=== PATIENT | male | born 1945 | race Caucasian/White ===

== ENCOUNTER 2016-10-06 11:53 | Emergency (ER) | payer MEDICARE ==
[2016-10-06 12:11] VITALS: BP 132/69
--- NOTE | 2016-10-06 13:31 | ED Physician Documentation ---
PD HPI NVD - Stated complaint Stated Complaint: RECTAL BLEEDING - Chief complaint Chief Complaint: Abd Pain - History obtained from History obtained from: Patient, Family - History of Present Illness Timing - onset: How many months ago (3) Timing - duration: Months (3) Timing - details: Gradual onset, Still present, Waxing and waning Associated symptoms: Other (rectal pain and diarrhea/constipation.) Contributing factors: Travel Improved by: Meds Worsened by: Other (stress of dealing with the insurance company) Similar symptoms before: Diagnosis (ulcerative colitis) Recently seen: Other (The patient was seen at [facility] by Dr. 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 He has not been able to get control of his symptoms entirely and he is having some trouble getting in to see the oil field roustabout here in [facility] out of his usual network. He has had some trouble getting his medication as well but he does have that now. He has been using Canasa and he has had some improvement but continues to have frequent loose bowel movements with blood. He has not lost any significant quantity of blood. He does have some rectal pain. Review of Systems Constitutional: reports: Fatigue. denies: Fever, Chills Eyes: denies: Decreased vision Ears: denies: Ear pain Nose: denies: Congestion Throat: denies: Sore throat Cardiac: denies: Chest pain / pressure Respiratory: denies: Dyspnea, Cough GI: reports: Diarrhea, Bloody / black stool. denies: Abdominal Pain, Nausea, Vomiting : denies: Dysuria, Frequency Skin: denies: Rash, Lesions Musculoskeletal: reports: Back pain. denies: Neck pain Neurologic: denies: Generalized weakness, Focal weakness, Numbness PD PAST MEDICAL HISTORY - Past Medical History GI: Ulcerative colitis : Renal insuffiency Psych: Anxiety Musculoskeletal: Other Other Past Medical History: skin cancer, arthritis, difficulty sleeping, stage 2 kidney disease - Past Surgical History Past Surgical History: Yes General: Colonoscopy Ortho: Other - Present Medications Home Medications: Ambulatory Orders Medication Instructions Recorded Confirmed Hydrocortisone Acetate [Proctocort] 30 mg RC BID #60 supp.rect 10/06/16 Mesalamine W/Cleansing Wipes 4 gm RC BID #60 enema.kit 10/06/16 [Rowasa 4 gm/60 ml Enema Kit] - Allergies Allergies/Adverse Reactions: Allergies Allergy/AdvReac Type Severity Reaction Status Date / Time No Known Drug Allergies Allergy Verified 10/06/16 12:12 - Social History Does the pt smoke?: No Smoking Status: Never smoker Does the pt drink ETOH?: Yes Does the pt have substance abuse?: No - Immunizations Immunizations are current?: Yes PD ED PE NORMAL - Vitals Vital signs reviewed: Yes - General General: Alert and oriented X 3, No acute distress, Well developed/nourished - HEENT HEENT: Atraumatic, PERRL, EOMI - Neck Neck: Supple, no meningeal sign - Cardiac Cardiac: RRR, No murmur - Respiratory Respiratory: No respiratory distress, Clear bilaterally - Abdomen Abdomen: Soft, Other (mild suprapubic tenderness without garding or rebound. ) - Rectal Rectal: Other (The rectal tone is normal and there is a lot of pain to the rectum with palpable internal hemorrhoid ) - Back Back: No CVA TTP, No spinal TTP - Derm Derm: Normal color, Warm and dry, No rash - Extremities Extremities: No deformity, No edema Results - Vitals Vitals: Vital Signs - 24 hr 10/06/16 12:04 Temperature 36.3 C L Heart Rate 74 Respiratory 18 Rate Blood Pressure 132/69 H O2 Saturation 98 Oxygen O2 Source Room air PD MEDICAL DECISION MAKING - ED course Complexity details: considered differential, d/w patient, d/w family ED course: 70 y/o male with a slow response to canasa and concern with ascending disease. He has not been able to get in to see the oil field roustabout. He has the canasa and we will add in an enema in the form of rowesa and rectal cortisone in an attempt to induce remission and he will follow up with his oil field roustabout to determine the need for maintenance. 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 This should induce a remission within 4-6 weeks and following this you should go on maintenance therapy with once daily treatment or an oral regime of Asacol or similar medication and this should be prescribed by your oil field roustabout. Discharge Date/Time: 10/06/16 14:01
== END 2016-10-06 14:01 | disposition home or self-care (01) ==
LOC: ED 11:53
DX: K51.319 Ulcerative (chronic) rectosigmoiditis with unspecified complications (principal); K64.8 Other hemorrhoids; Z85.828 Personal history of other malignant neoplasm of skin
CPT/HCPCS: 99283